=== PATIENT | female | born 1965 | race Caucasian/White ===

== ENCOUNTER 2020-02-01 15:06 | Emergency (ER) | payer OTHER ==
[~2020-02-01] VITALS: Ht 167.6 cm; Wt 77.1 kg
[2020-02-01] MEDS ORDERED: SERTRALINE HCL50 MG PO (15:18)
[2020-02-01] MEDS ORDERED: TRAMADOL 50 MG50 MG PO (15:18)
[2020-02-01] MEDS ORDERED: XANAX 0.25 MG0.25 MG PO (15:18)
[2020-02-01 17:29] VITALS: BP 132/71
[2020-02-01] MEDS ORDERED: KEFLEX500 M1 PO (17:47)
== END 2020-02-01 17:10 | disposition home or self-care (01) ==
LOC: M.ERS 15:06
DX: S63.287A Dislocation of proximal interphalangeal joint of left little finger, initial encounter (principal); S61.217A Laceration without foreign body of left little finger without damage to nail, initial encounter; F41.0 Panic disorder [episodic paroxysmal anxiety]; Z88.0 Allergy status to penicillin; Z88.1 Allergy status to other antibiotic agents; W18.31XA Fall on same level due to stepping on an object, initial encounter; Y93.89 Activity, other specified; Y92.89 Other specified places as the place of occurrence of the external cause; Y99.8 Other external cause status